=== PATIENT | male | born 1980 | race Caucasian/White ===

== ENCOUNTER 2020-09-13 22:10 | Emergency (ER) | payer BC, OTHER ==
[2020-09-13] MEDS ORDERED: Bupivacaine 0.5% 10 ML SDV INJECT ONE (22:54)
[2020-09-13] MEDS ORDERED: Clindamycin Palmitate Solution 75 MG/5 ML 100 ML Bottle PO STA (22:57)
[2020-09-13] MEDS ORDERED: Clindamycin HCl 150 MG Cap PO ONE (23:01)
[2020-09-13] MEDS ORDERED: Lidocaine 2% Viscous Solution 100 ML Bottle PO ONE (23:02)
[2020-09-13] MEDS ORDERED: Lidocaine 2% Viscous Solution 15 ML Cup PO ONE (23:05)
--- NOTE | 2020-09-13 23:28 | EDM.PDOC ---
ED HPI GENERAL MEDICAL PROBLEM - General Chief Complaint: ENT Problem Stated Complaint: TOOTH PAIN, RT SIDE OF FACE SWELLING Time Seen by Provider: 09/13/20 22:44 - History of Present Illness INITIAL COMMENTS - FREE TEXT/NARRATIVE: CHIEF COMPLAINT(S): Tooth pain HISTORY OF PRESENT ILLNESS: This is a 40-year-old man without any past medical history who comes to the emergency department with a chief complaint of tooth pain. The patient states that for the last 2 to 3 days he has been experiencing tooth pain in his bottom right molar. He states that the pain is rated 10 out of 10 and worse when he touches it. He denies any drooling, trouble breathing, stridor, inability to open mouth. He describes the pain is constant. He states that he has a history of cavities but does not have an appointment with a dentist. He denies any fevers or swelling. He denies any headache, blurry vision, trouble walking, trouble speaking, trouble swallowing. He states that he has been using Advil every 6 hours. He denies any other symptoms. REVIEW OF SYSTEMS: Constitutional: Denies fever, chills. Ears, Nose, Mouth, & Throat: Positive for right lower tooth pain. Denies drooling, inability to open mouth Neurological: Denies blurred vision, numbness, tingling, weakness, headache PAST MEDICAL HISTORY: As per history of present illness and as reviewed below otherwise noncontributory. SURGICAL HISTORY: As per history of present illness and as reviewed below otherwise noncontributory. SOCIAL HISTORY: As per history of present illness and as reviewed below otherwise noncontributory. FAMILY HISTORY: As per history of present illness and as reviewed below otherwise noncontributory. EXAMINATION OF ORGAN SYSTEMS/BODY AREAS: Constitutional: Blood pressure is 142/76, heart rate 74, respiratory rate 18 with an oxygen saturation 96% on room air. Temperature 36.6 General: Overall well-appearing man who is in no acute distress Psychiatric: Appropriate mood and affect. Eyes: No scleral icterus or conjunctival erythema pupils are equal round reactive to light. Extraocular movements intact ENMT: Moist mucous membranes. No pharyngeal erythema there is a dental carry in the patient's right lower jaw without any gum erythema, swelling or evidence of periapical abscess. There is no posterior regular swelling or mastoid swelling or tenderness. Patient does not have any trismus. No drooling noted. No stridor. Cardiovascular: Regular, rate, and rhythm. No gallops, murmurs, or rubs. Respiratory: Lungs clear to auscultation bilaterally. No wheezes, rales, or rhonchi. Skin: No lesions or abrasions. Neurological: Alert, GCS 15 strength and sensation grossly intact MEDICAL DECISION MAKING AND COURSE IN THE ED WITH INTERPRETATION/REVIEW OF DIAGNOSTIC STUDIES: This is a 40-year-old male without any significant past medical history who comes to the emergency department with dental carry with possible dental abscess however there is no skin changes. We will start the patient on antibiotics. At this time I did discuss with him that the ultimate treatment for this is going to be evaluation by dentist. I did offer a dental block. He was amenable to this plan. Therefore I did perform an inferior alveolar dental block. I did use 0.5% bupivacaine. Needle was inserted without any blood drawback. I did inject approximately 2 cc of 0.5% bupivacaine. No complications noted. Patient was observed in the emergency department. The patient had complete anesthesia of his pain. At this time we did provide the patient with lidocaine soaked cotton balls and encourage the patient to follow-up with dentist. I did send a prescription for antibiotics. He is to return for any new or worsening symptoms. He was amenable to discharge at this time and had no further questions DISPOSITION: The patient was discharged home in stable condition. The patient will follow up with dentist as soon as possible CONDITION: Fair PROCEDURES: Inferior alveolar block FINAL IMPRESSION(S)/DIAGNOSES: 1. Acute dental pain with dental carry, suspect dental abscess Shayne Boone M.D. R lower tooth Pain Score (Numeric/FACES): 9 - Related Data Allergies Allergy/AdvReac Type Severity Reaction Status Date / Time Penicillins Allergy Other Verified 09/13/20 22:44 Home Meds: Home Meds clindamycin HCL [Cleocin HCl] 450 mg PO TID #15 capsule 09/13/20 [Rx] Past Medical History - Past Health History Medical/Surgical History: Denies Medical/Surgical History - Infectious Disease History Infectious Disease History: Reports: Chicken Pox Social & Family History - Family History Family Medical History: No Pertinent Family History - Caffeine Use Caffeine Use: Reports: Soda - Recreational Drug Use Recreational Drug Use: No ED ROS GENERAL - Review of Systems Review Of Systems: See Below ED EXAM, GENERAL - Physical Exam Exam: See Below Course - Vital Signs Last Recorded V/S: Last Vital Signs Temp 36.2 C 09/13/20 23:39 Pulse 73 09/13/20 23:39 Resp 18 09/13/20 23:39 BP 151/80 H 09/13/20 23:39 Pulse Ox 95 09/13/20 23:39 - Orders/Labs/Meds Meds: Medications Discontinued Medications Generic Name Dose Route Start Last Admin Trade Name Tara PRN Reason Stop Dose Admin Bupivacaine HCl 10 ml 09/13/20 22:54 09/13/20 22:57 Sensorcaine-Mpf 0.5% INJECT 09/13/20 22:55 10 ml ONETIME ONE Administration Clindamycin HCl 450 mg 09/13/20 23:01 09/13/20 23:09 Cleocin PO 09/13/20 23:02 450 mg ONETIME ONE Administration Clindamycin Palmitate HCl 450 mg 09/13/20 22:57 09/13/20 23:10 Cleocin PO 09/13/20 22:58 Not Given ONETIME STA Lidocaine HCl 5 ml 09/13/20 22:54 09/13/20 22:57 Xylocaine-Mpf 1% INJECT 09/13/20 22:55 5 ml ONETIME ONE Administration Lidocaine HCl 20 ml 09/13/20 23:02 09/13/20 23:10 Xylocaine 2% Viscous PO 09/13/20 23:03 Not Given ONETIME ONE Lidocaine HCl 15 ml 09/13/20 23:05 09/13/20 23:09 Xylocaine 2% Viscous PO 09/13/20 23:06 15 ml ONETIME ONE Administration Departure - Departure Time of Disposition: 23:27 Disposition: Home, Self-Care 01 Condition: Fair Clinical Impression: Dental abscess - Discharge Information *PRESCRIPTION DRUG MONITORING PROGRAM REVIEWED*: No *COPY OF PRESCRIPTION DRUG MONITORING REPORT IN PATIENT COLLEEN: No Prescriptions: clindamycin HCL [Cleocin HCl] 450 mg PO TID #15 capsule Instructions: Dental Abscess, [id number] Referrals: PCP,Not In Area [Primary Care Provider] - Forms: ED Department Discharge Additional Instructions: Your evaluated today on an emergent basis. At this time it does appear that you have a cavity with possible dental infection. I did start you on clindamycin which should be taken 3 times a day until you follow-up with your dentist. We did provide relief with a dental block. Please use Tylenol and Motrin every 6 hours for pain. If you have any new or worsening symptoms you are welcome to return to the emergency department. Otherwise it is important to follow-up with your dentist in [place] as soon as possible. Please use: Tylenol 500-1000mg every 6 hours (DO NOT TAKE MORE THAN 4000mg in 1 day) Ibuprofen 400mg every 6 hours (Take with food as it can cause ulcers, GI upset) Example schedule: 8:00 AM (Tylenol 500-1000mg) 11:00 AM (Ibuprofen 400mg) 2:00 PM (Tylenol 500-1000mg) 5:00 PM (Ibuprofen 400mg) The patient is informed of any results of their evaluation and diagnostic workup and all questions are answered. They are given discharge instructions and return precautions. The patient is stable for discharge. The patient states they understand and agree with the plan and that they will return if their symptoms get worse or if they have any new concerns. The following information is given to patients seen in the emergency department who are being discharged to home. This information is to outline your options for follow-up care. We provide all patients seen in our emergency department with a follow-up referral. The need for follow-up, as well as the timing and circumstances, are variable depending upon the specifics of your emergency department visit. If you don't have a primary care physician on staff, we will provide you with a referral. We always advise you to contact your personal physician following an emergency department visit to inform them of the circumstance of the visit and for follow-up with them and/or the need for any referrals to a consulting specialist. The emergency department will also refer you to a specialist when appropriate. This referral assures that you have the opportunity for follow-up care with a specialist. All of these measure are taken in an effort to provide you with optimal care, which includes your follow-up. Under all circumstances we always encourage you to contact your private physician who remains a resource for coordinating your care. When calling for follow-up care, please make the office aware that this follow-up is from your recent emergency room visit. If for any reason you are refused follow-up, please contact the [facility] Emergency Department at and asked to speak to the emergency department charge nurse. Sepsis Event Note (ED) - Evaluation Sepsis Screening Result: No Definite Risk
== END 2020-09-13 23:40 | disposition home or self-care (01) ==
LOC: MW.ED 22:10
DX: K02.9 Dental caries, unspecified (principal); Z88.0 Allergy status to penicillin
CPT/HCPCS: 64400; 99282; A9270; J3490